=== PATIENT | female | born 1975 | race Caucasian/White ===

== ENCOUNTER → 2018-05-07 | Outpatient (CLI) | payer OTHER | END | disposition home or self-care (01) | LOC: RAD 17:50 | DX: K76.0 Fatty (change of) liver, not elsewhere classified (principal); N13.30 Unspecified hydronephrosis; M54.5 Low back pain | CPT/HCPCS: 76705; 76770 ==

== ENCOUNTER → 2018-05-08 | Outpatient (CLI) | payer OTHER | END | disposition home or self-care (01) | LOC: CFH 15:04 | DX: R16.1 Splenomegaly, not elsewhere classified (principal); N13.30 Unspecified hydronephrosis | CPT/HCPCS: 74176 ==